=== PATIENT | male | born 1975 | race Caucasian/White ===

== ENCOUNTER 2024-03-13 18:12 | Emergency (ER) | payer OTHER, SELFPAY ==
[2024-03-13] VITALS (21 sets, daily range): BP systolic 109–164; BP diastolic 67–110; BMI 25.3
--- NOTE | 2024-03-13 18:25 | EDRN ---
MD Neely at bedside.
--- NOTE | 2024-03-13 18:31 | ED.GENMED ---
History of Present Illness
General
Chief Complaint: Cardiac Symptoms
Source: patient
Time Seen by Provider: 03/13/24 18:24
History of Present Illness
History of Present Illness:
48-year-old male presents to the emergency room complaining of shortness of breath and palpitations. Symptoms began about an hour and a half ago. Patient has a history of A-fib and has had 3 ablations. Multiple cardioversions in the past. He had
been on anticoagulants but stopped recently on the recommendation of his intake coordinator. He did take a dose of Eliquis today when the symptoms started however.
Past History
Past History
ED Past Medical History: Arrthythmia (afib) and Asthma; Negative CAD or Cancer
ED Past Surgical History: None
Social History
Tobacco: Former smoker
Alcohol: Occasional
Drug: None
Personal:
Living: with family
Employment: Employed
Family History
Family History: Negative Early CAD
Phy Exam
Physical Exam
Physical Exam:
General: Awake, Alert, Oriented X3. No acute distress.
Vitals: Tachycardic
Head: Atraumatic
Eyes: Pupils equal, EOMI
Throat: Airway intact, no exudates
Neck: Trachea midline
Lungs: Clear and equal b/l
Heart: Tachycardic, irregular rate, no murmurs
Abd: Soft, Nontender, No pulsatile mass
Neuro: Nonfocal
Skin: Warm, dry, no rash
Extremities: pulses equal b/l, no edema
Course
Orders/Labs/Results
Orders:
Orders
03/13/24 18:13
Electrocardiogram (*1) Urgent
Reason for Study: Palpitations
EKG- Treatment ONCE
03/13/24 18:33
Propofol [Diprivan] 20 ml .ROUTE .STK-MED
03/13/24 18:46
Propofol [Diprivan] 200 mg IV NOW STA
03/13/24 18:50
EKG with chest pain [ECG as needed] As Directed
ECG as needed for:: Rhythm Change
Vital Signs
Initial and Last Documented VS:
Initial Vital Signs
Temp Pulse Resp BP Pulse Ox
98.9 F 81 16 153/75 98
03/13/24 18:16 03/13/24 18:16 03/13/24 18:16 03/13/24 18:16 03/13/24 18:16
Last Documented Vital Signs
Temp Pulse Resp BP Pulse Ox
98.5 F 92 21 119/79 96
03/13/24 20:30 03/13/24 20:40 03/13/24 20:40 03/13/24 20:40 03/13/24 20:40
Procedures
Cardioversion
Indication:: Afib
Synchronized?: Yes
Energy Used: 200 joules
Successful?: Yes
ASA Risk Score: Class I
Any reaction or bad outcome to prior sedation/anesthesia?: No history of a reaction
Sedation level to be attained: moderate
Chart and allergies reviewed: Yes
Patient reassessed prior to sedation: Yes
Time out completed at (validating right patient & procedure): 18:43
History of difficult intubation: No
Airway free of obstruction: Yes
Patient has a gag reflex: Yes
Patient is able to open mouth: Yes
Patient has no dentures: Yes
Patient has no loose teeth: Yes
Medication administered by Provider during Moderate Sedation: IV Propofol (mg)
Total dose administered: 200
Time drug administered: 18:46
Start Time: 18:46
Stop Time: 18:57
MDM/Problems Addressed
Differential Diagnosis Includes:
SVT, A-fib with rapid ventricular response, sinus tachycardia
MDM/Problems Addressed:
Patient presents with a rapid heart rate. EKG shows A-fib. Patient has a longstanding history of A-fib. His [id number] score is 0. He did take a dose of Eliquis today but has not been taking Eliquis recently other than that. However given his
[id number] I think he is a candidate for cardioversion here at this time as he is very precise as to when his symptoms began.
Patient tolerated cardioversion well. He did successfully convert to sinus rhythm with 1 shock. Repeat EKG shows sinus rhythm no ischemic changes. Patient with recovered from sedation and was discharged home
*Pulse Oximetry
Patient hypoxic: no
*EKG
Interpreted by ED Provider?: Yes
Interpretation: abnormal
Heart Rate: 166
Rate: tachycardiac
Rhythm: a-fib and PAC's
Ischemia: non-specific ST changes
*[facility] [place] Interpretation
Rate: tachycardiac
Interpretation: abnormal
Heart Rate: 166
Rhythm: a-fib
*Critical Care Note
Total Time (30-74mins, 75-104mins- exclusive of procedures): Not Applicable
ED Attending Note
-
Portions of this chart may have been created with voice recognition software.� Occasional wrong word or��sound alike� substitutions may have occurred due to the inherent limitations of voice recognition software.
Discharge Plan
Departure
Patient Disposition: Home (Routine Discharge)
Date of Disposition: 03/13/24
Time of Disposition: 20:45
Patient with high blood pressure during this ER visit?: Yes
Condition: Good
Discharge Problem:
AF (paroxysmal atrial fibrillation)
Instructions: Procedural Sedation, Adult ED, Atrial fibrillation and atrial flutter - ED discharge instructions
Prescriptions:
New
Eliquis 5 mg tablet
5 mg PO BID Qty: 14 0RF
No Action
apixaban [Eliquis] 5 MG tablet
5 mg PO BID Qty: 60 1RF
fluticasone propion-salmeterol [Advair Diskus] 1 EACH blister with device
1 puff PO DAILY
diltiazem HCl 120 MG capsule,extended release 24hr
120 mg PO HS
fluoxetine 10 MG capsule
10 mg PO DAILY
albuterol sulfate [Proventil HFA] 90 MCG/PUFF HFA aerosol inhaler
1 puff inhalation Q4HPRN PRN (Reason: sob)
pantoprazole 40 MG tablet,delayed release (DR/EC)
40 mg PO DAILY Qty: 14 0RF
Referrals:
Chula Rosales MD [Active] -
Interventions
Interventions:
*Risk Screen - Suicide Last Done: 03/13/24 18:16
*General Assessment Last Done: 03/13/24 18:29
*Neglect/Abuse Screening Last Done: 03/13/24 18:16
*ED COVID-19 Vaccine History Last Done: 03/13/24 18:29
*Nursing Disposition Last Done: 03/13/24 20:56
ED- Pulmonary Assessment Last Done: 03/13/24 18:27
ED- Cardiac Assessment Last Done: 03/13/24 18:27
Discharge Date and Time
Discharge Date/Time: 03/13/24 20:58
Print Language: GRENADIAN
[2024-03-13] MEDS: DIPRIVAN 200 MG IV (18:57)
== END 2024-03-13 20:58 | disposition home or self-care (01) ==
LOC: EMR 18:12
PROVIDERS: EMERGENCY PHYSICIAN Emergency Medicine; FAMILY PHYSICIAN Internal Medicine
DX: I48.0 Paroxysmal atrial fibrillation (principal); J45.909 Unspecified asthma, uncomplicated; Z87.891 Personal history of nicotine dependence
CPT/HCPCS: 92960; 99152; 99285; 93005